=== PATIENT | male | born 1985 | race Caucasian/White ===

== ENCOUNTER 2021-04-14 03:50 | Emergency (ER) | payer MEDICAID ==
[~2021-04-14] VITALS: Ht 177.8 cm; Wt 91.0 kg
[2021-04-14] MEDS ORDERED: ACETAMINOPHEN 325MG TABLET PO ONE (04:45)
[2021-04-14] MEDS ORDERED: IBUPROFEN 400MG TABLET PO ONE (04:45)
[2021-04-14] MEDS ORDERED: CEFAZOLIN 1000MG PREMIX 50 ML IV ONE ×2 (05:00→06:00)
[2021-04-14] MEDS ORDERED: KETOROLAC 15MG/ML VIAL IV ONE ×2 (05:00→06:00)
[2021-04-14] MEDS ORDERED: IBUP-2029 MT (06:20)
[2021-04-14] MEDS ORDERED: CEPH500C2 MT (06:20)
[2021-04-14] MEDS ORDERED: CEPHALEXIN 250MG CAPSULE PO ONE (06:30)
[2021-04-14] MEDS ORDERED: IBUPROFEN 600MG TABLET PO ONE (06:30)
[2021-04-14 06:49] VITALS: BP 127/69
== END 2021-04-14 06:53 | disposition home or self-care (01) ==
LOC: ER 03:50
DX: L03.116 Cellulitis of left lower limb (principal)
CPT/HCPCS: 93971; 99284